=== PATIENT | female | born 1950 | race African-American/Black ===

== ENCOUNTER 2017-01-09 12:05 | Inpatient (IN) | payer MEDICARE, OTHER ==
[~2017-01-09] VITALS: Ht 170.2 cm; Wt 59.0 kg
[~2017-01-09 12:05] MED LIST: AMLO10TA80 PO; ASPI-867 PO; CHOL40002 PO; CITA20TA19 PO; CLOP75TA2 PO; LEVO125T8 PO; LOSA100T14 PO
[2017-01-09 14:03] LABS: BASOPHILS % 0.5 % (0.0-2.0); DIFFERENTIAL COMMENT 0; EOSINOPHILS % 0.9 % (0.0-5.0); HEMATOCRIT. 35.1 % (36.0-48.0); HEMOGLOBIN. 11.9 g/dL (12.0-16.0); LYMPHOCYTES % 29.6 % (20.0-50.0); MEAN CORPUSCULAR HEMOGLOBIN 34.5 pg (28.0-32.0); MEAN CORPUSCULAR HGB CONC 33.9 g/dL (31.0-37.0); MEAN CORPUSCULAR VOLUME 101.9 fL (81.0-99.0); MEAN PLATELET VOLUME 8.6 fl (7.4-10.4); MONOCYTES % 10.8 % (2.0-8.0); NEUTROPHILS % 58.2 % (40.0-76.0); PLATELET 282 x1000/uL (130-400); RED BLOOD CELL COUNT 3.44 mill/uL (4.2-5.4); RED CELL DISTRIBUTION WIDTH 13.7 % (11.6-14.6); WHITE BLOOD COUNT 8.5 x1000/uL (4.5-11.0)
[2017-01-09 14:38] LABS: ALANINE AMINOTRANSFERASE 21 IU/L (13-61); ALBUMIN 3.1 g/dL (3.4-5.0); ANION GAP 13; CALCIUM 8.6 mg/dL (8.5-10.1); CARBON DIOXIDE 26 mEq/L (21-32); CHLORIDE 104 mEq/L (98-107); ETHANOL BLOOD < 10 mg/dL; INDEX HEMOLYSI 1 (1-3); INDEX ICTERIC 1 (1-4); INDEX LIPEMIC 1 (1-3); UREA NITROGEN BLOOD 21 mg/dL (7-21); eGFR > 60 mL/min (>60)
[2017-01-09 15:15] LABS: CLARITY URINE CLOUDY (CLEAR); COLOR URINE YELLOW (YELLOW); GLUCOSE URINE 2+ (NEGATIVE); KETONES URINE TRACE (NEGATIVE); LEUKOCYTE ESTERASE URINE 2+ (NEGATIVE); NITRITE URINE NEGATIVE (NEGATIVE); OCCULT BLOOD URINE NEGATIVE (NEGATIVE); PROTEIN URINE 1+ (NEGATIVE); SPECIFIC GRAVITY URINE 1.021 (1.005-1.030); UROBILINOGEN URINE 0.2 E.U./dL (0.2-1.0)
[2017-01-09 15:32] LABS: *AMPHETAMINES SCREEN URINE NEGATIVE (NEGATIVE); *BARBITURATES SCREEN URINE NEGATIVE (NEGATIVE); *BENZODIAZEPINES SCREEN URINE NEGATIVE (NEGATIVE); *COCAINE SCREEN URINE NEGATIVE (NEGATIVE); CANNABINOID URINE SCREEN PRESUMTIVE POSITIVE (NEGATIVE); ECSTASY MDMA SCREEN URINE NEGATIVE (NEGATIVE); METHADONE URINE SCREEN NEGATIVE (NEGATIVE); OPIATES URINE SCREEN NEGATIVE (NEGATIVE); PHENCYCLIDINE URINE SCREEN NEGATIVE (NEGATIVE)
[2017-01-09 16:05] LABS: BACTERIA URINE 4+; COARSE GRANULAR CASTS URINE 0-5 /lpf; RBC URINE NONE SEEN /hpf (0-2); SQUAMOUS EPITHELIAL CELL URINE 1+ /lpf (RARE/1+); WBC URINE 15-25 /hpf (0-2); YEAST URINE 1+
[2017-01-09] MEDS ORDERED: ACETAMINOPHEN 325MG TABLET PO PRN (16:15)
[2017-01-09] MEDS ORDERED: CLONIDINE 0.1MG TABLET PO PRN (16:15)
[2017-01-09] MEDS ORDERED: IPRATROPIUM/ALBUTEROL 0.5-3(2.5)MG/3ML NEB INH PRN (16:15)
[2017-01-09] MEDS ORDERED: ONDANSETRON HCL 4MG/2ML VIAL IV PRN (16:15)
[2017-01-09 17:55] LABS: ANION GAP 13; CALCIUM 8.9 mg/dL (8.5-10.1); CARBON DIOXIDE 26 mEq/L (21-32); CHLORIDE 103 mEq/L (98-107); INDEX HEMOLYSI 1 (1-3); INDEX ICTERIC 1 (1-4); INDEX LIPEMIC 1 (1-3); UREA NITROGEN BLOOD 18 mg/dL (7-21); eGFR > 60 mL/min (>60)
[2017-01-09] MEDS: ENOXAPARIN 40MG/0.4ML SYR SUBCUT SCH (18:16)
[2017-01-09] MEDS ORDERED: DEXTROSE 50% WATER 50ML SYRINGE IV PRN (19:00)
[2017-01-09 20:00] VITALS: BP_SYST 131; BP_SYST 141; BP_DIAS 67; BP_DIAS 73
[2017-01-09] MEDS: BLOOD SUGAR DIAGNOSTIC STRIP TEST SCH (21:00)
[2017-01-09] MEDS: INSULIN LISPRO 100 UNITS/ML SUBCUT SCH (22:57)
[2017-01-10] VITALS: BP 124/63
[2017-01-10] MEDS ORDERED: LOSA50TA20 PO (02:21)
[2017-01-10] MEDS ORDERED: HYDR-4134 PO (02:21)
[2017-01-10] MEDS ORDERED: LEVO150T8 PO (02:21)
[2017-01-10 04:00] VITALS: BP 123/62
[2017-01-10 05:29] LABS: BASOPHILS % 0.3 % (0.0-2.0); DIFFERENTIAL COMMENT 0; HEMATOCRIT. 31.2 % (36.0-48.0); HEMOGLOBIN. 10.4 g/dL (12.0-16.0); LYMPHOCYTES % 40.3 % (20.0-50.0); MEAN CORPUSCULAR HEMOGLOBIN 34.3 pg (28.0-32.0); MEAN CORPUSCULAR HGB CONC 33.3 g/dL (31.0-37.0); MEAN PLATELET VOLUME 8.6 fl (7.4-10.4); MONOCYTES % 14.4 % (2.0-8.0); PLATELET 244 x1000/uL (130-400); RED BLOOD CELL COUNT 3.03 mill/uL (4.2-5.4); RED CELL DISTRIBUTION WIDTH 13.3 % (11.6-14.6); WHITE BLOOD COUNT 7.2 x1000/uL (4.5-11.0)
[2017-01-10] MEDS: BLOOD SUGAR DIAGNOSTIC STRIP TEST SCH ×4 (06:02→22:08)
[2017-01-10 06:22] LABS: T4 FREE 1.77 ng/dL (0.76-1.46); THYROID STIMULATING HORMONE 0.31 uIU/mL (0.36-3.74)
[2017-01-10 08:00] VITALS: BP 133/73
[2017-01-10] MEDS: INSULIN LISPRO 100 UNITS/ML SUBCUT SCH ×4 (08:31→22:31)
[2017-01-10] MEDS: CLOPIDOGREL 75MG TABLET PO SCH (13:28)
[2017-01-10] MEDS: LEVOTHYROXINE SODIUM 150MCG TABLET PO SCH (13:28)
[2017-01-10] MEDS: ASPIRIN 325MG EC TABLET PO SCH (13:28)
[2017-01-10] MEDS: LOSARTAN POTASSIUM 50 MG TABLET PO SCH (13:29)
[2017-01-10] MEDS: CITALOPRAM HYDROBROMIDE 20MG TABLET PO SCH (13:29)
[2017-01-10] MEDS: AMLODIPINE 10MG TABLET PO SCH (13:29)
[2017-01-10] MEDS: HYDRALAZINE HCL 25MG TABLET PO SCH ×2 (14:11→22:26)
[2017-01-10 16:00] VITALS: BP 131/65
[2017-01-10] MEDS: ENOXAPARIN 40MG/0.4ML SYR SUBCUT SCH (18:28)
[2017-01-10 20:00] VITALS: BP 111/58
[2017-01-10] MEDS ORDERED: INSULIN DETEMIR UD 100 UNITS/ML SYR SUBCUT SCH (22:00)
[2017-01-11] VITALS: BP 129/71
[2017-01-11 06:00] VITALS: BP 137/88
[2017-01-11] MEDS: LEVOTHYROXINE SODIUM 150MCG TABLET PO SCH (06:26)
[2017-01-11] MEDS: HYDRALAZINE HCL 25MG TABLET PO SCH ×3 (06:26→22:41)
[2017-01-11] MEDS: BLOOD SUGAR DIAGNOSTIC STRIP TEST SCH ×4 (06:28→21:00)
[2017-01-11 08:00] VITALS: BP 133/80
[2017-01-11] MEDS: CLOPIDOGREL 75MG TABLET PO SCH (08:54)
[2017-01-11] MEDS: AMLODIPINE 10MG TABLET PO SCH (08:54)
[2017-01-11] MEDS: CITALOPRAM HYDROBROMIDE 20MG TABLET PO SCH (08:55)
[2017-01-11] MEDS: LOSARTAN POTASSIUM 50 MG TABLET PO SCH (08:55)
[2017-01-11] MEDS: ASPIRIN 325MG EC TABLET PO SCH (08:55)
[2017-01-11] MEDS: INSULIN LISPRO 100 UNITS/ML SUBCUT SCH ×4 (08:56→22:43)
[2017-01-11 12:00] VITALS: BP 130/71
[2017-01-11 16:00] VITALS: BP_SYST 124; BP_SYST 130; BP_DIAS 71; BP_DIAS 79
[2017-01-11] MEDS: ENOXAPARIN 40MG/0.4ML SYR SUBCUT SCH (18:45)
[2017-01-11 20:00] VITALS: BP 122/61
[2017-01-11] MEDS: INSULIN DETEMIR UD 100 UNITS/ML SYR SUBCUT SCH (22:34)
[2017-01-12] VITALS: BP 114/65
[2017-01-12 04:00] VITALS: BP 124/66
[2017-01-12] MEDS: LEVOTHYROXINE SODIUM 150MCG TABLET PO SCH (06:21)
[2017-01-12] MEDS: HYDRALAZINE HCL 25MG TABLET PO SCH ×3 (06:21→21:39)
[2017-01-12] MEDS: BLOOD SUGAR DIAGNOSTIC STRIP TEST SCH ×4 (06:44→21:45)
[2017-01-12] MEDS: INSULIN LISPRO 100 UNITS/ML SUBCUT SCH ×4 (07:50→21:48)
[2017-01-12 08:00] VITALS: BP 131/73
[2017-01-12] MEDS: AMLODIPINE 10MG TABLET PO SCH (09:13)
[2017-01-12] MEDS: ASPIRIN 325MG EC TABLET PO SCH (09:13)
[2017-01-12] MEDS: CLOPIDOGREL 75MG TABLET PO SCH (09:13)
[2017-01-12] MEDS: LOSARTAN POTASSIUM 50 MG TABLET PO SCH (09:14)
[2017-01-12] MEDS: CITALOPRAM HYDROBROMIDE 20MG TABLET PO SCH (09:14)
[2017-01-12] MEDS: HYDROCODONE/ACETAMINOPHEN 5/325MG TABLET PO PRN (11:39)
[2017-01-12 12:00] VITALS: BP 143/70
[2017-01-12 16:00] VITALS: BP 118/65
[2017-01-12] MEDS: ENOXAPARIN 40MG/0.4ML SYR SUBCUT SCH (17:34)
[2017-01-12 20:03] VITALS: BP 132/71
[2017-01-12] MEDS: INSULIN DETEMIR UD 100 UNITS/ML SYR SUBCUT SCH (21:49)
[2017-01-13] VITALS: BP 135/81
[2017-01-13 05:42] VITALS: BP 129/95
[2017-01-13] MEDS: HYDRALAZINE HCL 25MG TABLET PO SCH ×3 (06:03→21:01)
[2017-01-13] MEDS: LEVOTHYROXINE SODIUM 150MCG TABLET PO SCH (06:03)
[2017-01-13] MEDS: BLOOD SUGAR DIAGNOSTIC STRIP TEST SCH ×4 (06:07→21:14)
[2017-01-13 08:00] VITALS: BP 133/81
[2017-01-13] MEDS: ASPIRIN 325MG EC TABLET PO SCH (08:20)
[2017-01-13] MEDS: LOSARTAN POTASSIUM 50 MG TABLET PO SCH (08:20)
[2017-01-13] MEDS: AMLODIPINE 10MG TABLET PO SCH (08:20)
[2017-01-13] MEDS: CITALOPRAM HYDROBROMIDE 20MG TABLET PO SCH (08:20)
[2017-01-13] MEDS: CLOPIDOGREL 75MG TABLET PO SCH (08:20)
[2017-01-13] MEDS: INSULIN LISPRO 100 UNITS/ML SUBCUT SCH ×4 (08:27→21:11)
[2017-01-13 12:00] VITALS: BP 122/60
[2017-01-13 16:00] VITALS: BP 137/77
[2017-01-13] MEDS: ENOXAPARIN 40MG/0.4ML SYR SUBCUT SCH (18:06)
[2017-01-13] MEDS: INSULIN DETEMIR UD 100 UNITS/ML SYR SUBCUT SCH (21:12)
[2017-01-13] MEDS: HYDROCODONE/ACETAMINOPHEN 5/325MG TABLET PO PRN (21:14)
[2017-01-13] MEDS ORDERED: CYANOCOBALAMIN 1000MCG/ML VIAL IM SCH (22:30)
[2017-01-13 22:58] VITALS: BP 142/97
[2017-01-14 03:50] LABS: FOLIC ACID (FOLATE) SERUM 6.9 ng/mL (>5.38)
[2017-01-14 13:07] LABS: A/G RATIO 0.8 (0.7-1.7); ALPHA-1-GLOBULIN 0.3 g/dL (0.0-0.4); ALPHA-2-GLOBULIN 1.2 g/dL (0.4-1.0); BETA GLOBULIN 1.1 g/dL (0.7-1.3); GAMMA GLOBULINS 1.2 g/dL (0.4-1.8); GLOBULIN TOTAL 3.7 g/dL (2.2-3.9); M-SPIKE Not Observed g/dL (Not Observed); TOTAL PROTEIN SERUM 6.7 g/dL (6.0-8.5)
== END 2017-01-13 23:40 | DRG 638 ==
LOC: ER 13:36 → 6EST 16:05 → INTOOBSV 16:05 → OBSVTOIN 16:05
PROVIDERS: ADMIT Internal Medicine; ATTEND Internal Medicine
DX: E11.65 Type 2 diabetes mellitus with hyperglycemia (principal); N39.0 Urinary tract infection, site not specified; E44.1 Mild protein-calorie malnutrition; F12.10 Cannabis abuse, uncomplicated; I50.9 Heart failure, unspecified; I11.0 Hypertensive heart disease with heart failure; J44.9 Chronic obstructive pulmonary disease, unspecified; Z82.49 Family history of ischemic heart disease and other diseases of the circulatory system; Z86.73 Personal history of transient ischemic attack (TIA), and cerebral infarction without residual deficits; Z83.3 Family history of diabetes mellitus; Z87.891 Personal history of nicotine dependence; Z79.899 Other long term (current) drug therapy
CPT/HCPCS: 36415; 70450; 71010; 72148; 72170; 78306; 80048; 80053; 80061; 80305; 81001; 82607; 82746; 82962; 84155; 84165; 84439; 84443; 85025; 93005; 96372; 97116; 97162; 97530; 99285; A9503; C1893; G0482; J1650; J1815; J3420

== ENCOUNTER 2017-07-23 12:06 | Inpatient (IN) | payer MEDICARE, OTHER ==
[~2017-07-23] VITALS: Ht 170.2 cm; Wt 48.5 kg
[~2017-07-23 12:06] MED LIST changes: +CLOP75TA16 PO; -CLOP75TA2 PO; +HYDR-4134 PO; -LEVO125T8 PO; +LEVO150T8 PO; -LOSA100T14 PO; +LOSA50TA20 PO
[2017-07-23] MEDS ORDERED: MORPHINE SULFATE 4 MG/ML CPJ (NOT FOR IM USE) IV STA (13:28)
[2017-07-23] MEDS ORDERED: ONDANSETRON HCL 4MG/2ML VIAL IV STA (13:28)
[2017-07-23] MEDS ORDERED: DEXAMETHASONE 10 MG/ML VIAL IV ONE (13:45)
[2017-07-23 14:24] LABS: BASOPHILS % 0.2 % (0.0-2.0); EOSINOPHILS % 0.1 % (0.0-5.0); HEMATOCRIT. 32.2 % (36.0-48.0); HEMOGLOBIN. 10.9 g/dL (12.0-16.0); LYMPHOCYTES % 8.7 % (20.0-50.0); MEAN CORPUSCULAR HEMOGLOBIN 31.9 pg (28.0-32.0); MEAN CORPUSCULAR VOLUME 94.4 fL (81.0-99.0); MEAN PLATELET VOLUME 8.6 fl (7.4-10.4); MONOCYTES % 11.7 % (2.0-8.0); NEUTROPHILS % 79.3 % (40.0-76.0); PLATELET 188 x1000/uL (130-400); RED BLOOD CELL COUNT 3.41 mill/uL (4.2-5.4); RED CELL DISTRIBUTION WIDTH 16.5 % (11.6-14.6)
[2017-07-23 14:27] LABS: CHLORIDE 100 mEq/L (98-107)
[2017-07-23 14:29] LABS: PROTHROMBIN TIME 10.6 sec (9.4-11.6)
[2017-07-23 14:32] LABS: CARBON DIOXIDE 23 mEq/L (21-32)
[2017-07-23] MEDS ORDERED: MORPHINE SULFATE 4 MG/ML CPJ (NOT FOR IM USE) IV ONE (15:30)
[2017-07-23] MEDS ORDERED: ONDANSETRON HCL 4MG/2ML VIAL IV ONE (16:45)
[2017-07-23] MEDS ORDERED: HYDROCODONE/ACETAMINOPHEN 5/325MG TABLET PO ONE (20:45)
[2017-07-23 21:03] LABS: CLARITY URINE CLEAR (CLEAR); COLOR URINE YELLOW (YELLOW); GLUCOSE URINE 3+ (NEGATIVE); KETONES URINE 1+ (NEGATIVE); LEUKOCYTE ESTERASE URINE NEGATIVE (NEGATIVE); NITRITE URINE NEGATIVE (NEGATIVE); OCCULT BLOOD URINE NEGATIVE (NEGATIVE); PH URINE 6.5 (4.5-8.0); PROTEIN URINE NEGATIVE (NEGATIVE); SPECIFIC GRAVITY URINE 1.028 (1.005-1.030); UROBILINOGEN URINE 0.2 E.U./dL (0.2-1.0)
[2017-07-23 22:03] VITALS: BP 146/58
[2017-07-23 22:30] VITALS: BP 146/58
[2017-07-23] MEDS ORDERED: HYDR-4134 PO (22:42)
[2017-07-23] MEDS ORDERED: LEVO75TA7 PO (22:42)
[2017-07-23] MEDS ORDERED: ONDANSETRON HCL 4MG/2ML VIAL IV PRN (23:45)
[2017-07-23] MEDS ORDERED: DEXTROSE 50% WATER 50ML SYRINGE IV PRN (23:45)
[2017-07-24] VITALS: BP 142/67
[2017-07-24] MEDS: MORPHINE SULFATE 4 MG/ML CPJ (NOT FOR IM USE) IV PRN ×3 (00:20→09:00)
[2017-07-24] MEDS ORDERED: CLONIDINE 0.1MG TABLET PO PRN (03:02)
[2017-07-24 04:00] VITALS: BP 164/66
[2017-07-24] MEDS: HYDRALAZINE HCL 25MG TABLET PO SCH ×3 (05:05→21:06)
[2017-07-24] MEDS ORDERED: INSULIN LISPRO 100 UNITS/ML SUBCUT SCH ×3 (06:00→07:40)
[2017-07-24] MEDS ORDERED: DEXTROSE 50% WATER 50ML SYRINGE IV PRN (06:15)
[2017-07-24] MEDS: PANTOPRAZOLE 40MG DR TABLET PO SCH (06:25)
[2017-07-24] MEDS: LEVOTHYROXINE SODIUM 75MCG TABLET PO SCH (06:26)
[2017-07-24] MEDS ORDERED: BLOOD SUGAR DIAGNOSTIC STRIP TEST SCH ×2 (07:10)
[2017-07-24 08:36] VITALS: BP 113/54
[2017-07-24] MEDS: CITALOPRAM HYDROBROMIDE 20MG TABLET PO SCH (08:46)
[2017-07-24] MEDS: AMLODIPINE 10MG TABLET PO SCH (08:46)
[2017-07-24] MEDS: LOSARTAN POTASSIUM 50 MG TABLET PO SCH (08:47)
[2017-07-24] MEDS ORDERED: HYDROCODONE/ACETAMINOPHEN 10/325MG TABLET PO SCH (10:45)
[2017-07-24] MEDS: BLOOD SUGAR DIAGNOSTIC STRIP TEST SCH ×3 (11:32→20:50)
[2017-07-24] MEDS ORDERED: HYDROMORPHONE HCL/PF 2MG/ML CPJ IV NR (12:15)
[2017-07-24 12:26] VITALS: BP 115/45
[2017-07-24] MEDS: INSULIN LISPRO 100 UNITS/ML SUBCUT SCH ×3 (12:34→20:50)
[2017-07-24 17:32] VITALS: BP 108/52
[2017-07-24 20:00] VITALS: BP 103/52
[2017-07-24] MEDS: HYDROMORPHONE HCL/PF 2MG/ML CPJ IV PRN (21:02)
[2017-07-25] VITALS: BP 105/55
[2017-07-25 04:00] VITALS: BP 117/58
[2017-07-25] MEDS: HYDRALAZINE HCL 25MG TABLET PO SCH ×3 (05:26→21:17)
[2017-07-25] MEDS: PANTOPRAZOLE 40MG DR TABLET PO SCH (06:19)
[2017-07-25] MEDS: LEVOTHYROXINE SODIUM 75MCG TABLET PO SCH (06:19)
[2017-07-25] MEDS: HYDROMORPHONE HCL/PF 2MG/ML CPJ IV PRN ×4 (06:20→22:00)
[2017-07-25] MEDS: BLOOD SUGAR DIAGNOSTIC STRIP TEST SCH ×4 (06:25→20:30)
[2017-07-25] MEDS: INSULIN LISPRO 100 UNITS/ML SUBCUT SCH ×4 (06:40→21:00)
[2017-07-25 08:00] VITALS: BP 94/43
[2017-07-25] MEDS: LOSARTAN POTASSIUM 50 MG TABLET PO SCH (08:28)
[2017-07-25] MEDS: AMLODIPINE 10MG TABLET PO SCH (08:28)
[2017-07-25] MEDS: CITALOPRAM HYDROBROMIDE 20MG TABLET PO SCH (08:49)
[2017-07-25 12:00] VITALS: BP 100/50
[2017-07-25 17:10] VITALS: BP 145/38
[2017-07-25 20:00] VITALS: BP 130/47
[2017-07-25] MEDS ORDERED: INSULIN LISPRO 100 UNITS/ML SUBCUT NR (20:15)
[2017-07-25] MEDS ORDERED: INSULIN DETEMIR UD 100 UNITS/ML SYR SUBCUT SCH (22:00)
[2017-07-26] VITALS (8 sets, daily range): BP systolic 108–150; BP diastolic 51–68
[2017-07-26] MEDS: DEXTROSE 50% WATER 50ML SYRINGE IV PRN ×2 (06:05→13:28)
[2017-07-26] MEDS: BLOOD SUGAR DIAGNOSTIC STRIP TEST SCH ×3 (06:08→18:09)
[2017-07-26] MEDS: HYDRALAZINE HCL 25MG TABLET PO SCH ×2 (06:13→13:28)
[2017-07-26] MEDS: LEVOTHYROXINE SODIUM 75MCG TABLET PO SCH (06:24)
[2017-07-26] MEDS: PANTOPRAZOLE 40MG DR TABLET PO SCH (06:24)
[2017-07-26] MEDS: INSULIN LISPRO 100 UNITS/ML SUBCUT SCH ×3 (06:41→18:38)
[2017-07-26] MEDS: HYDROMORPHONE HCL/PF 2MG/ML CPJ IV PRN ×3 (06:46→20:32)
[2017-07-26] MEDS: LOSARTAN POTASSIUM 50 MG TABLET PO SCH (07:54)
[2017-07-26] MEDS: AMLODIPINE 10MG TABLET PO SCH (07:54)
[2017-07-26] MEDS: CITALOPRAM HYDROBROMIDE 20MG TABLET PO SCH (08:56)
[2017-07-26] MEDS ORDERED: CARISOPRODOL 350 MG TABLET PO PRN (11:30)
== END 2017-07-26 20:44 | DRG 551 ==
LOC: ER 13:18 → 8WST 15:36 → EDBEDREQ 16:28 → ENRESERV 20:09
PROVIDERS: ADMIT Internal Medicine; ATTEND Internal Medicine
DX: S32.10XA Unspecified fracture of sacrum, initial encounter for closed fracture (principal); E13.10 Other specified diabetes mellitus with ketoacidosis without coma; F03.90 Unspecified dementia, unspecified severity, without behavioral disturbance, psychotic disturbance, mood disturbance, and anxiety; I10 Essential (primary) hypertension; E11.9 Type 2 diabetes mellitus without complications; R32 Unspecified urinary incontinence; Z82.49 Family history of ischemic heart disease and other diseases of the circulatory system; Z83.3 Family history of diabetes mellitus; Z86.73 Personal history of transient ischemic attack (TIA), and cerebral infarction without residual deficits; Z99.3 Dependence on wheelchair; W18.39XA Other fall on same level, initial encounter; Y93.89 Activity, other specified; Y92.89 Other specified places as the place of occurrence of the external cause; Y99.8 Other external cause status
CPT/HCPCS: 36415; 72148; 80053; 81001; 82962; 85025; 85610; 92610; 96374; 96375; 96376; 99285; J1100; J1170; J1815; J2270; J2405; A4315